=== PATIENT | male | born 1975 | race Caucasian/White ===

== ENCOUNTER 2017-11-01 10:33 | Emergency (ER) | payer MEDICAID ==
[~2017-11-01] VITALS: Ht 170.2 cm; Wt 70.0 kg
[2017-11-01 12:47] LABS: CLARITY URINE CLOUDY (CLEAR); COLOR URINE DARK YELLOW (YELLOW); KETONES URINE TRACE (NEGATIVE); LEUKOCYTE ESTERASE URINE NEGATIVE (NEGATIVE); NITRITE URINE NEGATIVE (NEGATIVE); OCCULT BLOOD URINE TRACE (NEGATIVE); PROTEIN URINE TRACE (NEGATIVE); SPECIFIC GRAVITY URINE 1.024 (1.005-1.030)
[2017-11-01] MEDS ORDERED: KETOROLAC 60MG/2ML VIAL IM ONE (13:30)
[2017-11-01 13:42] VITALS: BP 125/77
== END 2017-11-01 16:18 | disposition left against medical advice (07) ==
LOC: ER 10:39
DX: K40.90 Unilateral inguinal hernia, without obstruction or gangrene, not specified as recurrent (principal); M48.061 Spinal stenosis, lumbar region without neurogenic claudication; N20.0 Calculus of kidney; Z59.0 Homelessness
CPT/HCPCS: 74176; 81003; 96372; 99285; J1885

== ENCOUNTER 2021-05-20 22:22 | Emergency (ER) | payer MEDICAID ==
[~2021-05-20] VITALS: Ht 172.7 cm; Wt 91.0 kg
[2021-05-20 22:25] VITALS: BP 162/110
[2021-05-20] MEDS ORDERED: ACETAMINOPHEN 500MG TABLET PO ONE (22:45)
[2021-05-21 00:07] LABS: HEMOGLOBIN. 14.5 g/dL (14.0-18.0); MEAN CORPUSCULAR HEMOGLOBIN 32.8 pg (28.0-32.0); MEAN CORPUSCULAR VOLUME 95.3 fL (80.0-94.0); MEAN PLATELET VOLUME 6.9 fl (7.4-10.4); PLATELET 278 x1000/uL (130-400); RED BLOOD CELL COUNT 4.41 mill/uL (4.7-6.1); RED CELL DISTRIBUTION WIDTH 13.8 % (11.6-14.6)
[2021-05-21 00:43] LABS: CHLORIDE 102 mEq/L (98-107)
[2021-05-21 00:52] LABS: ETHANOL BLOOD 193 mg/dL
[2021-05-21 01:04] LABS: CLARITY URINE CLOUDY (CLEAR); COLOR URINE DARK YELLOW (YELLOW); KETONES URINE NEGATIVE (NEGATIVE); LEUKOCYTE ESTERASE URINE TRACE (NEGATIVE); NITRITE URINE NEGATIVE (NEGATIVE); OCCULT BLOOD URINE 3+ (NEGATIVE); PROTEIN URINE 1+ (NEGATIVE); SPECIFIC GRAVITY URINE 1.025 (1.005-1.030)
[2021-05-21] MEDS ORDERED: LIDOCAINE HCL 1% 20ML VIAL (Pyxis) INJ INFIL ONE (01:15)
[2021-05-21] MEDS ORDERED: CEFTRIAXONE SODIUM 1 G/VIAL IM ONE (01:15)
[2021-05-21] MEDS ORDERED: MUPI15CR11 TP (01:16)
[2021-05-21] MEDS ORDERED: CEPH500C2 MT (01:16)
[2021-05-21 03:45] LABS: *AMPHETAMINES SCREEN URINE PRESUMTIVE POSITIVE (NEGATIVE); *BARBITURATES SCREEN URINE NEGATIVE (NEGATIVE); *BENZODIAZEPINES SCREEN URINE NEGATIVE (NEGATIVE); *COCAINE SCREEN URINE NEGATIVE (NEGATIVE); CANNABINOID URINE SCREEN PRESUMTIVE POSITIVE (NEGATIVE); METHADONE URINE SCREEN PRESUMTIVE POSITIVE (NEGATIVE); OPIATES URINE SCREEN PRESUMTIVE POSITIVE (NEGATIVE); PHENCYCLIDINE URINE SCREEN NEGATIVE (NEGATIVE)
[2021-05-21 09:04] LABS: PLATELET ESTIMATE NORMAL
== END 2021-05-21 01:00 | disposition home or self-care (01) ==
LOC: ER 22:22
DX: R31.9 Hematuria, unspecified (principal); J34.0 Abscess, furuncle and carbuncle of nose; F15.10 Other stimulant abuse, uncomplicated; F11.10 Opioid abuse, uncomplicated; F10.188 Alcohol abuse with other alcohol-induced disorder; Y90.6 Blood alcohol level of 120-199 mg/100 ml; F12.10 Cannabis abuse, uncomplicated; F19.10 Other psychoactive substance abuse, uncomplicated; I10 Essential (primary) hypertension
CPT/HCPCS: 36415; 80053; 80305; 80320; 81003; 85025; 93005; 96372; 99284; J0696; J3490; G0480

== ENCOUNTER 2021-10-22 10:06 | Emergency (ER) | payer OTHER ==
[~2021-10-22] VITALS: Ht 175.3 cm; Wt 79.0 kg
[~2021-10-22 10:06] MED LIST: CEPH500C2 MT; MUPI15CR11 TP
[2021-10-22] MEDS ORDERED: METHADONE HCL 10MG TABLET PO ONE (11:00)
[2021-10-22 11:10] VITALS: BP 100/50
== END 2021-10-22 11:30 ==
LOC: ER 10:06
DX: F11.23 Opioid dependence with withdrawal (principal); Z79.891 Long term (current) use of opiate analgesic
CPT/HCPCS: 99283

== ENCOUNTER 2022-06-14 06:28 | Emergency (ER) | payer MEDICAID, OTHER ==
[~2022-06-14] VITALS: Ht 175.3 cm; Wt 77.0 kg
[2022-06-14 06:57] VITALS: BP 138/97
[2022-06-14] MEDS ORDERED: CEPH500C2 PO (07:39)
[2022-06-14] MEDS ORDERED: SULF1TAB48 PO (07:39)
[2022-06-14] MEDS ORDERED: ONDANSETRON HCL 4MG TABLET PO ONE (07:45)
== END 2022-06-14 08:06 | disposition home or self-care (01) ==
LOC: ER 06:28
DX: L03.811 Cellulitis of head [any part, except face] (principal); L03.114 Cellulitis of left upper limb; L03.113 Cellulitis of right upper limb; F90.9 Attention-deficit hyperactivity disorder, unspecified type
CPT/HCPCS: 99283; Q0162